=== PATIENT | male | born 1965 | race Caucasian/White ===

== ENCOUNTER 2021-11-05 05:34 | Outpatient (CLI) | payer BC ==
[~2021-11-05] VITALS: Ht 185.4 cm; Wt 92.9 kg
[2021-11-06] MEDS ORDERED: ACHD5005 PO (10:45)
== END 2021-11-05 11:10 | disposition home or self-care (01) ==
LOC: PREOP 05:34
PROVIDERS: ATTEND Surgery
DX: Z01.818 Encounter for other preprocedural examination (principal)

== ENCOUNTER 2021-11-06 07:34 | Day surgery (SDC) | payer BC ==
[2021-11-06] VITALS (9 sets, daily range): BP systolic 128–152; BP diastolic 73–100
[~2021-11-06] VITALS: Ht 185 cm; Wt 92.9 kg
[2021-11-06] MEDS ORDERED: ceFAZolin 2 GM IV Premixed 50 ML IV ONE (07:45)
[2021-11-06] MEDS ORDERED: LACTATED RINGERS 1,000 ML IV PRN (07:45)
[2021-11-06] MEDS ORDERED: MIDAZOLAM 2 MG/2 ML (VERSED) VIAL IV ONE (08:30)
[2021-11-06] MEDS ORDERED: LIDOCAINE/EPI 1%-1:200,000 (XYLOCAINE) 30 ML VIAL ONE (09:28)
[2021-11-06] MEDS ORDERED: ROCURONIUM 10 MG/ML 5 ML SYRINGE IV ONE (09:31)
[2021-11-06] MEDS ORDERED: ONDANSETRON 4 MG/2 ML (SDV) Z0FRAN ONE (09:31)
[2021-11-06] MEDS ORDERED: LIDOCAINE PF 2% 5 ML (XYLOCAINE) VIAL ONE (09:31)
[2021-11-06] MEDS ORDERED: proPOfol 200 MG/20 ML (DIPRIVAN) VIAL IV ONE (09:31)
[2021-11-06] MEDS ORDERED: fentaNYL INJ 100 MCG/2 ML AMP ONE (09:31)
[2021-11-06] MEDS ORDERED: MIDAZOLAM 2 MG/2 ML (VERSED) VIAL ONE (09:31)
--- NOTE | 2021-11-06 10:08 | Progress Note-Pre Operative ---
Pre-Operative Progress Note H&P Reviewed The H&P was reviewed, patient examined and no changes noted. Date Seen by Provider: Nov 06, 2021 Time Seen by Provider: 10:07 Date H&P Reviewed: Nov 06, 2021 Time H&P Reviewed: 10:08 Pre-Operative Diagnosis: back cyst VIANEY HOOD DO Nov 06, 2021 10:08
[2021-11-06] MEDS ORDERED: ACHD5005 PO (10:45)
--- NOTE | 2021-11-06 10:47 | Discharge Inst-Simple/Standard ---
Discharge Inst-Standard Discharge Medications New, Converted or Re-Newed RX: Transmitted to Pharmacy Patient Instructions/Follow Up Plan of Care/Instructions/FU: 12-14 days Armando Activity as Tolerated: Yes Discharge Diet: Regular Diet Other Inst to Patient Follow up Appt: Make appointment for 12-14 days. Instructions: No strenuous activity. May shower in 24 hours, no tub bath or soaking. Use incentive spirometer at home as directed. No Smoking Skin/Wound Care: Keep area clean and dry. Symptoms to Report: Appetite Changes, Extremity Discoloration, Numbness/Tingling, Swelling Increased, Bleeding Excessive, Eyesight Changes, Pain Increased, Urine Color Change, Constipation(Persistent), Fever over 101 degree F, Pain/Pressure in chest, Urinating Difficulty, Cough Up/Vomit Blood, Heart Beat Irreg/Pounding, Pain/Pressure in jaw, Vaginal Bleeding Increase, Cramps in feet or legs, Lightheadedness, Pain/Pressure in shoulder, Diarrhea(Persistent), Memory Changes Suddenly, Questions/Concerns, Weight gain consecutive days, Dizziness/Fainting, Nausea/Vomiting, Shortness of Breath, Weight gain over 2 pounds If questions or concerns contact your physician Or seek help at emergency department. VIANEY OHOD DO Nov 06, 2021 10:47
[2021-11-06] MEDS ORDERED: GLYCOPYRROLATE 0.2 MG/ML (ROBINUL) 2 ML VIAL ONE (10:55)
[2021-11-06] MEDS ORDERED: NEOSTIGMINE 3 MG/3 ML VIAL ONE (10:55)
[2021-11-06] MEDS ORDERED: SEVOFLURANE (ULTANE) 15 ML INHAL SOLN ONE (10:59)
[2021-11-06] MEDS ORDERED: PROMETHAZINE INJ 25 MG/ML (PHENERGAN) AMP IVP ONE (11:15)
[2021-11-06] MEDS ORDERED: ONDANSETRON 4 MG/2 ML (SDV) Z0FRAN IVP PRN (11:15)
[2021-11-06] MEDS ORDERED: MEPERIDINE (DEMEROL) INJ 50 MG/ML IVP ONE (11:15)
[2021-11-06] MEDS ORDERED: morphine INJ 10 MG/ML 1ML (SYR OR VIAL) IVP ONE (11:15)
[2021-11-06] MEDS ORDERED: HYDROmorphone 2 MG/ML VIAL (DILAUDID) IV ONE (11:15)
--- NOTE | 2021-11-06 12:00 | Anesthesia-General Post-Op ---
General Patient Condition Mental Status/LOC: Same as Preop Cardiovascular: Satisfactory Nausea/Vomiting: Absent Respiratory: Satisfactory Pain: Controlled Complications: Absent Post Op Complications Complications None Follow Up Care/Instructions Patient Instructions None needed. Anesthesia/Patient Condition Patient Condition Patient is doing well, no complaints, stable vital signs, no apparent adverse anesthesia problems. No complications reported per nursing. CHELSEA JOHN CRNA Nov 06, 2021 12:00
--- NOTE | 2021-11-06 14:53 | OPERATIVE REPORT ---
DATE OF SERVICE: 11/06/2021 PREOPERATIVE DIAGNOSIS: Back cyst. POSTOPERATIVE DIAGNOSIS: Back cyst. PROCEDURE: Excision of back cyst, 6.5 x 2.5 cm. SURGEON: Vianey Roberts DO ANESTHESIA: General. ESTIMATED BLOOD LOSS: Minimal. COMPLICATIONS: None. INDICATIONS: The patient is a 56-year-old male with an infected cyst on his back. He was treated medically. This has been treated with antibiotics and resolved the infection portion. The patient is here for removal of the cyst. He understands all risks and benefits. Consent was signed in the chart. DESCRIPTION OF PROCEDURE: The patient was taken to the operating suite, was placed in the right lateral recumbent position. Timeout was performed. Local anesthetic was infiltrated . A #15 blade scalpel was used to make a small skin incision around the cyst measuring 6.5 x 2.5 cm. Cautery was used to remove the skin and subcutaneous tissue. Hemostasis was achieved. The wound was irrigated with copious amounts of irrigation and suction. The skin was then closed using 2-0 Prolene in vertical mattress in simple interrupted fashion. The area was washed, and dried and sterile bandage was applied. The patient tolerated procedure well without complications, taken to recovery room in stable condition. RECOMMENDATIONS: The patient will follow up in 12 to 14 days for suture removal. 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
[2021-11-10] MEDS ORDERED: TRM50T PO (12:39)
== END 2021-11-06 13:15 ==
LOC: SDC 07:34
PROVIDERS: ATTEND Surgery
DX: L72.0 Epidermal cyst (principal); L92.3 Foreign body granuloma of the skin and subcutaneous tissue; L08.89 Other specified local infections of the skin and subcutaneous tissue; Z79.899 Other long term (current) drug therapy; Z79.1 Long term (current) use of non-steroidal anti-inflammatories (NSAID); Z79.2 Long term (current) use of antibiotics; Z87.891 Personal history of nicotine dependence
CPT/HCPCS: 87081